=== PATIENT | male | born 1970 | race Caucasian/White ===

== ENCOUNTER → 2020-01-26 10:41 | Outpatient (BNVA) | payer SELFPAY | PROVIDERS: Visit Provider Physician Assistant Medical | DX: Z02.79 Encounter for issue of other medical certificate (principal) ==

== ENCOUNTER → 2021-02-22 13:45 | Outpatient (BNVA) | payer SELFPAY | PROVIDERS: Visit Provider Physician Assistant | DX: Z02.79 Encounter for issue of other medical certificate (principal) ==

== ENCOUNTER → 2023-03-27 08:10 | Outpatient (BNVA) | payer SELFPAY | PROVIDERS: Visit Provider Internal Medicine | DX: Z02.79 Encounter for issue of other medical certificate (principal) ==

== ENCOUNTER → 2024-03-21 15:16 | Outpatient (BNVA) | payer SELFPAY | PROVIDERS: Visit Provider Physician Assistant Medical | DX: Z02.79 Encounter for issue of other medical certificate (principal) ==

== ENCOUNTER 2024-07-14 10:41 | Emergency (ER) | payer OTHER, SELFPAY ==
--- NOTE | ~2024-07-14 | XR_ITS ---
EXAMINATION: XR LUMBOSACRAL SPINE CLINICAL INFORMATION: tenderness sp fall COMPARISON: None available. TECHNIQUE: Three views of the lumbosacral spine. FINDINGS: Syndesmophyte formation and marginal osteophyte formation L2-3 and L3-4. Endplate sclerosis and decreased intervertebral disc height at L4-5 and L5-S1 and to a lesser extent T12-L1. Mild S-shaped curvature which could be positional. No acute cortical disruption or gross malalignment. No lytic or blastic lesions. XR/XR lumbar spine 2-3V IMPRESSION: Spondylosis without acute fracture or trauma-related listhesis. Electronically signed by: Kevon Savage MD 07/14/2024 11:34 AM EDT
--- NOTE | ~2024-07-14 | XR_ITS ---
EXAMINATION: XR ELBOW, LEFT CLINICAL INFORMATION: medial tenderness s/p fall COMPARISON: None available. TECHNIQUE: AP, lateral, and oblique views of the left elbow. FINDINGS: No acute cortical disruption or malalignment. No gross joint effusion. No metallic or radiopaque foreign body. No lytic or blastic lesions. XR/XR elbow LT 2V IMPRESSION: No acute fracture or dislocation. Electronically signed by: Kevon Savage MD 07/14/2024 11:35 AM EDT
--- NOTE | ~2024-07-14 | XR_ITS ---
EXAMINATION: XR THORACIC SPINE CLINICAL INFORMATION: midline tenderness s/p fall COMPARISON: None available. TECHNIQUE: 3 views of the thoracic spine were obtained. FINDINGS: Multilevel marginal osteophyte formation and endplate sclerosis. No acute cortical disruption or malalignment. No gross volume loss of the vertebral bodies height. No lytic or blastic lesions. XR/XR thoracic spine 3V IMPRESSION: Multilevel spondylosis without acute fracture or trauma-related listhesis. Electronically signed by: Kevon Savage MD 07/14/2024 11:33 AM EDT
[2024-07-14 10:42] VITALS: BP 146/108; PULSE 77; RESP 20; TEMP 36.5; O2SAT 96; BMI 36.5
--- NOTE | 2024-07-14 10:49 | ED.FALL ---
HPI - Fall General Chief Complaint: Fall Stated Complaint: fell off ladder backwards at work Time Seen by Provider: 07/14/24 12:53 Source: patient, RN notes reviewed and old records reviewed Mode of arrival: wheelchair Limitations: no limitations History of Present Illness ED Provider: Daren [facility] Narrative: Patient is a 53-year-old male presenting to emergency department from [facility] after a fall at work prior to arrival. Patient states that his foot got caught on a wire, causing him to fall backwards approximately 3 feet and land on his back. Denies head strike or loss of consciousness, is not anticoagulated. Also complaining of left elbow pain. Denies headache, vision changes, neck pain. Denies nausea or vomiting. Denies hematuria. MD complaint: fall Onset (ago): hour(s) Fall from: standing and from height (distance) (3') Place fall occurred: work Loss of consciousness: none Prolonged down time: no Symptoms prior to fall: none Context: tripped/slipped Location of injury: back Related Data Previous Rx's ?Medication ?Instructions ?Recorded cyclobenzaprine 10 mg tablet 10 mg PO TID #14 tabs 07/14/24 lidocaine 5 % topical patch 1 patch topical DAILY #15 ea 07/14/24 naproxen 500 mg tablet 500 mg PO BID #14 tabs 07/14/24 Allergies Allergy/AdvReac Type Severity Reaction Status Date / Time Penicillins Allergy Unknown Verified 07/14/24 10:46 Review of Systems Review of Systems: As per HPI Yes all other systems are reviewed and are negative Constitutional: Constitutional: Reports as per HPI [facility] Social History Social History Do you have a plan to hurt others: No Plan Physical Exam Vital Signs: Vital Signs: Last Vital Signs Temp 97.7 F 07/14/24 10:42 Pulse 77 07/14/24 10:42 Resp 20 07/14/24 10:42 BP 146/108 H 07/14/24 10:42 Pulse Ox 96 07/14/24 10:42 O2 Del Method Room Air 07/14/24 10:42 BMI result Body Mass Index 36.5 Vital signs have been reviewed and appear to be correct. Blood pressure normal. Heart rate normal. Respiratory rate normal. Temperature normal. Oxygen saturation normal. Const: General: cooperative, healthy appearing and no acute distress Orientation/consciousness: oriented to person, oriented to place, oriented to time and patient oriented x3 Limitations: no limitations HEENT: Head: Yes normocephalic and Yes atraumatic Ears: external ears normal General nose exam: Normal external nose present Face and sinus: Yes face symmetric Mouth: oropharynx normal and moist mucous membranes Throat: Yes uvula midline Eyes: Pupils: Equal, round and reactive pupils present Neck: Neck: Yes normal visual inspection and Yes supple Resp: Effort & Inspection: normal respiratory effort and able to speak in complete sentences Auscultation: clear to auscultation bilaterally Cardio: Rate: regular rate Rhythm: regular rhythm Heart sounds: S1 normal heart sound present and S2 normal heart sound present GI: Palpation (GI): Soft to palpation and nontender Auscultation: normoactive bowel sounds : General: Yes no CVA tenderness Back/Spine/Pelvis: Back: no CVA tenderness Cervical Spine: normal cervical lordosis, cervical ROM normal, No cervical muscular tenderness, No pain with cervical ROM, No Cervical spine tenderness and No step off deformity Thoracic/Lumbar Spine: thoracic and lumbar spine normal to inspection, thoraco-lumbar ROM normal, straight leg raise negative bilaterally, pain with thoraco-lumbar ROM, paraspinal muscle tenderness bilaterally in the upper thoracic and in the mid thoracic, thoracic spinal tenderness at T2 and at T3 and No lumbar spinal tenderness Skin: General skin exam: elasticity normal and turgor normal Neuro: General: oriented to person, oriented to place, oriented to time, patient oriented x3, gait normal, tone normal, moves all extremities, Normal light touch and pain sensation, no focal motor deficits, CN's II-XI intact bilaterally and deep tendon reflexes 2+ bilaterally Cranial nerves: Yes Equal, round and reactive pupils present Cognition (Neuro): normal cognition Motor exam (neuro): 5/5 motor strength present throughout and Normal motor muscle tone present throughout Extrem: General: Yes full ROM, Yes no pedal edema and Yes no calf tenderness Left upper extremity: elbow/forearm Details: normal to inspection, tenderness Location: of the medial epicondyle, normal ROM and distal pulses intact; no ecchymosis Psych: Mental Status: mental status grossly normal Affect: normal affect Thought process: Normal thought process present Course Course Course Narrative: This is a rapid medical exam performed by Vasu Mercedes NP: Additional HPI, ROS, PE not included below will be deferred to primary provider. 07/14/24 10:50 Patient is a 53-year-old male presenting [facility] a fall at work prior to arrival. Patient states that his foot got caught on a wire, causing him to fall backwards and land on his back. Denies head strike or loss of consciousness, is not anticoagulated. Also complaining of left elbow pain. Plan: X-rays Medical Decision Making Medical Decision Making [facility] Narrative: Patient is a 53-year-old male presenting to emergency department from [facility] after a fall at work prior to arrival. On exam patient is awake, A+Ox3, VS WNL, afebrile, normal neurological exam without focal deficits, physical exam findings as above. Given reported symptoms and physical exam findings, initial differential includes but is not limited to contusion, vertebral fracture or subluxation, elbow contusion or fracture. X-ray left elbow notable for no acute fracture. X-rays of thoracic and lumbar spine without evidence of acute fracture or subluxation. My interpretation is in agreement with the radiologist's interpretation. Imaging of head and neck not indicated based on [place] [facility] rules. results discussed with patient and all questions answered. Advised patient he may be more sore for the next 1-2 days before slowly improving. Will send prescriptions for Flexeril, naproxen, lidocaine patches. Advised patient to follow up with PCP as well as [facility]. Return precautions discussed. Patient verbalized understanding of and agreement with plan. Differential Diagnosis Differential Diagnoses: The differential diagnosis associated with the presentation includes As per [facility] Admission/Observation Consideration of admission/observation: Escalation of care including admission/observation considered Patient would have been admitted to the hospital had their work up had any findings where hospital admission was appropriate and their clinical presentation warranted hospital admission. Independent Interpretation I performed an independent interpretation of an: Plain X-Ray Interpretation: X-ray left elbow notable for no acute fracture. X-rays of thoracic and lumbar spine without evidence of acute fracture or subluxation. Radiology Impression Discussion of test interpretation with radiology: I have reviewed the radiologist's reading. Radiologist Impression: XR/XR lumbar spine 2-3V IMPRESSION: Spondylosis without acute fracture or trauma-related listhesis. XR/XR thoracic spine 3V IMPRESSION: Multilevel spondylosis without acute fracture or trauma-related listhesis. XR/XR elbow LT 2V IMPRESSION: No acute fracture or dislocation. External Record Review External record reviewed: Inpatient record, Office record and Outpatient record Prescription Management I considered prescription management with: Pain Medication and Other Discharge Plan Discharge Clinical Impression: Back pain due to injury, Contusion of left elbow Patient Disposition: Home, Self-Care Instructions: Contusion in Adults (ED), Back Pain (ED), Warm Compress or Soak (ED) Additional Instructions: You were evaluated in the emergency department today for injuries related to a fall. Your imaging did not show evidence of conditions requiring emergent medical treatment at this time. You are being prescribed cyclobenzaprine which is a muscle relaxer. Do not operate heavy machinery or take alcohol while using this medication as it can cause excessive drowsiness. You are being prescribed naproxen to decrease inflammation. You are being prescribed topical lidocaine patches for pain which you can wear for up to 12 hours in a 24 hour period. Do not apply heat directly over the patches. We recommend that you follow-up with your primary care provider this week. Return to the emergency department if you develop new weakness, numbness, tingling to your arms or legs, tingling to your groin area, loss of control of your bowel or bladder, worsening pain, blood in your urine, or any other new or concerning symptoms. Follow-up with [facility] as well. [facility] [address] [place] [address] Prescriptions: New cyclobenzaprine 10 mg tablet 10 mg PO TID Qty: 14 0RF naproxen 500 mg tablet 500 mg PO BID Qty: 14 0RF lidocaine 5 % adhesive patch,medicated 1 patch topical DAILY Qty: 15 0RF Rx Instructions: leave on most painful area for up to 12 hrs Stand Alone Forms: Work/School Release Print Language: Korean
[2024-07-14 12:54] VITALS: BP 142/95; PULSE 62; RESP 20; TEMP 36.5; O2SAT 98
[2024-07-14 13:03] VITALS: BP 142/95; PULSE 62; RESP 20; TEMP 36.5; O2SAT 98
--- OUTSIDE RECORDS SUMMARY | 2024-07-14 14:36 | XMS_ITS | Data Portability ---
Author Organization [facility], , [facility] Address [address] [place] [address] Care Team Providers Care Devops Consultant Name Role Phone JOSE GONZALES Spa Director/Finance JAMIE TAPIA Urologist KADE SHEIKH Primary Care Provider JUAN BRAND Primary Care Provider Assessment Encounter Date Assessment Date Assessment LastModified by Organization Details LastModified Time 05/18/2020 05/18/2020 Patient agreed to this visit via a secure telehealth platform due to the COVID -19 pandemic. Patient understands this is a scheduled visit and the usual procedures with regard to billing and confidentialit y apply. Patient was notified that the provider location is home Patient location: home During the visit the patient? s medical history and medical record were reviewed. The patient was notified to call our office for worsening or urgent symptoms. Not available 05/18/2020 16:04:11 Plan of Treatment Reminders Order Date Submit Date Provider Last Modified By Organization Details Last Modified Time Details Appointments None recorded. 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 Surgeries None recorded. Imaging XR, chest - r/o PNA. ongoing cough and wheezing. 2023 024 [facility] (Im[facility]), [address], [place], [address], 4 10:44:07 Medication Orders albuterol sulfate HFA 90 mcg/actuat ion aerosol inhaler 2023 024 [facility]/Pharmacy #[id number], [address] [place], [address], 4 09:46:05 Symbicort 80 mcg-4.5 mcg/actuat ion HFA aerosol inhaler 2023 024 [facility]/Pharmacy #[id number], [address] [place], [address], 4 09:46:05 Patient TargetsNo targets recorded. Patient Instructions Encounter Date Encounter Id Patient Instructions Last Modified By Organization Details Last Modified Time 05/18/2020 [id number] After a discussi on of treatment and medication options, which included consideration of the best practices in medicine, a medical plan was provided. The patient's opinions and concerns were included in this treatment plan and goal. Things you can do to lower your risk of Covid 19 and help slow the spread of the virus -Get plenty of rest -Eat a healthy diet, with lots of fruits and vegetables -Get 7-8 hours of sleep per night -Make sure you are doing some type of exercise inside your house or outside (not in groups) -Maintain 6 feet distance from friends / family -Wash your hands frequently for 20 seconds and / or use Purell or other hand greige goods examiner -Do not touch your face, eyes, nose, mouth -Cover your mouth and nose with a tissue when sneezing and coughing or sneeze and cough into your sleeve. Throw the tissue in the trash. Wash your hands afterward. Never cough or sneeze into your hands. -Clean frequently used surfaces (such as doorknobs and counter tops) with a virus-killing disinfectant. -Call with any concerns. 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 3 Not Available [address], [address], 08/30/2021 12:47:30 08/30/19 22 08/30/2021 BASIC METAB OLIC PANEL B/C 16.4 ratio Not Available [address], [address], 08/30/2021 12:47:30 08/30/19 22 08/30/2021 BASIC METAB OLIC PANEL GFR >=60ML /MIN mL/mi n normal >=60m L/min - Janice l or midly reduc ed <60mL /min- Decre ased kidne y funct ion <15mL /min - Kidne y failu re [facility] calcu lates estim ated Glome rular Filtr ation Rate (eGFR ) using the Chron ic Kidne y Disea se Epide miolo gy Colla borat ion (CKD- EPI) Equat ion (Kirstie r et. al 2020) as recom khang d by the Natio nal Kidne y Found ation . eGFR is based on age, serum creat inine , and sex. CKD-E PI does not calcu late eGFR by race, does not apply to child sally (age <18 years ), and shoul d not be used in pregn rico. Not Available [address], [address], 08/30/2021 12:47:30 08/30/19 22 08/30/2021 BASIC METAB OLIC PANEL sodium 143 mmol/ L 136-14 5 Not Available [address], [address], 08/30/2021 12:47:30 08/30/19 22 08/30/2021 BASIC METAB OLIC PANEL potassium 4.4 mmol/ L 3.5-5. 1 Not Available [address], [address], 08/30/2021 12:47:30 08/30/19 22 08/30/2021 BASIC METAB OLIC PANEL chloride 106 mmol/ L 96-107 Not Available [address], [address], 08/30/2021 12:47:30 08/30/19 22 08/30/2021 BASIC METAB OLIC PANEL anion gap 8.3 5.0-15 .0 Not Available [address], [address], 08/30/2021 12:47:30 08/30/19 22 08/30/2021 BASIC METAB OLIC PANEL CO2 29 mmol/ L 21-32 Not Available [address], [address], 08/30/2021 12:47:30 08/30/19 22 08/30/2021 BASIC METAB OLIC PANEL calcium 9.2 mg/dL 8.5-10 .3 Not Available [address], [address], 08/30/2021 12:47:30 08/30/19 22 08/30/2021 LIPID PANEL cholesterol 219 mg/dL <200 mg/dl Arcelia able 200-2 39 mg/dl Borde rline High >240 mg/dl High Not Available [address], [address], 08/30/2021 12:47:31 08/30/19 22 08/30/2021 LIPID PANEL triglyceride s 130 mg/dL <150 mg/dL Janice l 150-1 99 mg/dL Borde rline High 200-4 99 mg/dL High >500 mg/dL Very High Not Available [address], [address], 08/30/2021 12:47:31 08/30/19 22 08/30/2021 LIPID PANEL direct HDL 49 mg/dL <40 mg/dl - Major Risk for CHD >60 mg/dl - Negat julio Risk for CHD Not Available [address], [address], 08/30/2021 12:47:31 08/30/19 22 08/30/2021 DIREC T LDL direct LDL 138 mg/dL RISK CATEG ORY LDL GOAL _ CHD or CHD Risk Equiv alent s <100 mg/dl (10-y ear risk >20%) 2+ Risk Facto rs <130 mg/dl (10-y ear risk <= 20%) 0-1 Risk Facto r? <160 mg/dl ? Almos t all peopl e with 0-1 risk facto r have a 10 year risk <10%, thus 10 year risk asses ment in peopl e with 0-1 risk facto r is not neces zacarias. Not Available [address], [address], 08/30/2021 12:47:32 07/04/1907/04/2022 LIPID PANEL cholesterol 225 mg/dL <200 mg/dl Arcelia able 200-2 39 mg/dl Borde rline High >240 mg/dl High Not Available [address], [address], 07/04/2022 11:23:02 07/04/1907/04/2022 LIPID PANEL triglyceride s 221 mg/dL <150 mg/dL Janice l 150-1 99 mg/dL Borde rline High 200-4 99 mg/dL High >500 mg/dL Very High Not Available [address], [address], 07/04/2022 11:23:02 07/04/1907/0407/04/2022 LIPID PANEL direct HDL 45 mg/dL <40 mg/dl - Major Risk for CHD >60 mg/dl - Negat julio Risk for CHD Not Available [address], [address], 07/04/2022 11:23:02 07/04/19 23 07/04/2022 DIREC T LDL direct LDL 144 mg/dL RISK CATEG ORY LDL GOAL _ CHD or CHD Risk Equiv alent s <100 mg/dl (10-y ear risk >20%) 2+ Risk Facto rs <130 mg/dl (10-y ear risk <= 20%) 0-1 Risk Facto r? <160 mg/dl ? Almos t all peopl e with 0-1 risk facto r have a 10 year risk <10%, thus 10 year risk asses ment in peopl e with 0-1 risk facto r is not neces zacarias. Not Available [address], [address], 07/04/2022 11:23:03 07/04/19 23 07/04/2022 HGB A1C hemoglobin A1C 5.7 % 4.8-6. 0 Goal: <7% in Patie nts with Diabe kristopher An A1c betwe en 5.7-6 .4% is ident ified as pre-d iabet es and sugge sts risk for progr essio n to diabe kristopher Two a1c value s of 6.5% or highe r is consi stent with a diagn osis of diabe kristopher but may need furth er confi rmati on Not Available [address], [address], 07/04/2022 11:27:20 07/04/19 23 07/04/2022 HGB A1C estimated average glucose 116.9 mg/dL Not Available [address], [address], 07/04/2022 11:27:20 07/04/1907/04/2022 TSH TSH 2.86 uIU/m L 0.50-6 .00 The Ameri can Colle ge of Endoc rinol ogy and Ameri can Thyro id Assoc iatio n recom mend goal TSH value s betwe en 0.4-4 .0 mIU/m L. Not Available [address], [address], 07/04/2022 12:25:48 07/04/1907/04/2022 BASIC METAB OLIC PANEL glucose 71 mg/dL 70-100 Not Available [address], [address], 07/04/2022 15:29:40 07/04/1907/04/2022 BASIC METAB OLIC PANEL BUN 15 mg/dL 7-18 Not Available [address], [address], 07/04/2022 15:29:40 07/04/1907/04/2022 BASIC METAB OLIC PANEL creatinine 1.2 mg/dL 0.8-1. 3 Not Available [address], [address], 07/04/2022 15:29:40 07/04/1907/04/2022 BASIC METAB OLIC PANEL B/C 12.5 ratio Not Available [address], [address], 07/04/2022 15:29:40 07/04/1907/04/2022 BASIC METAB OLIC PANEL GFR >=60ML /MIN mL/mi n normal >=60m L/min - Janice l or midly reduc ed <60mL /min- Decre ased kidne y funct ion <15mL /min - Kidne y failu re [facility] calcu lates estim ated Glome rular Filtr ation Rate (eGFR ) using the Chron ic Kidne y Disea se Epide miolo gy Colla borat ion (CKD- EPI) Equat ion (Kirstie r et. al 2020) as recom khang d by the Leanne banks . eGFR is based on age, serum creat inine , and sex. CKD-E PI does not calcu late eGFR by race, does not apply to child sally (age <18 years ), and shoul d not be used in pregn rico. Not Available [address], [address], 07/04/2022 15:29:40 07/04/1907/04/2022 BASIC METAB OLIC PANEL sodium 141 mmol/ L 136-14 5 Not Available [address], [address], 07/04/2022 15:29:40 07/04/1907/04/2022 BASIC METAB OLIC PANEL potassium 4.3 mmol/ L 3.5-5. 1 Not Available [address], [address], 07/04/2022 15:29:40 07/04/1907/04/2022 BASIC METAB OLIC PANEL chloride 105 mmol/ L 96-107 Not Available [address], [address], 07/04/2022 15:29:40 07/04/1907/04/2022 BASIC METAB OLIC PANEL anion gap 6.2 5.0-15 .0 Not Available [address], [address], 07/04/2022 15:29:40 07/04/1907/04/2022 BASIC METAB OLIC PANEL CO2 30 mmol/ L 21-32 Not Available [address], [address], 07/04/2022 15:29:40 07/04/1907/04/2022 BASIC METAB OLIC PANEL calcium 9.5 mg/dL 8.5-10 .3 MYRON=V erifi ed by Romina mills Not Available [facility] [address], [place], [address], 07/04/2022 15:29:40 09/04/19 22 09/03/2021 xr wrist 3 or more views (left ) XR FINGER 2 OR MORE VIEWS (LEFT) , XR WRIST (LEFT) COMPAR EMILY: None. IMPRES DAVID: Left thumb: No displa baljit fractu re or disloc ation. No signif icant soft tissue swelli ng. Left wrist: No displa baljit fractu re, disloc ation, or signif icant soft tissue swelli ng. ATTEST ATION: Twan Stout as teachi ng physic nan, have review ed the images for this case and if necess sachin edited the report origin yaa kang by Joaquin moran . Electr onical ly Signed by: Twan webster on 022 7:35 PM Interp reted by: Twan webster MD, PhD [facility] MD Joaquin Hammonds MD, MPH Signed by: Twan webster MD, PhD 2 Final result Pt fell onto left hand with baseba ll glove on. Pt states shooti ng pain from thumb up to elbow. Pt had a lot of pain during scapho id positi ons HARESH INE VAIBHAV DIN [email or web address] [facility] [address] [facility], [place], [address], 09/05/2021 19:15:51 09/04/19 22 09/03/2021 xr finge r 2 or more views (left ) XR FINGER 2 OR MORE VIEWS (LEFT) , XR WRIST (LEFT) COMPAR EMILY: None. IMPRES DAVID: Left thumb: No displa baljit fractu re or disloc ation. No signif icant soft tissue swelli ng. Left wrist: No displa baljit fractu re, disloc ation, or signif icant soft tissue swelli ng. ATTEST ATION: Twan Stout as teachi ng physic nan, have review ed the images for this case and if necess sachin edited the report origin yaa create d by Joaquin moran . Electr onical ly Signed by: Twan webster on 022 7:35 PM Interp reted by: Twan webster MD, PhD [facility] MD Joaquin Hammonds MD, MPH Signed by: Twan webster MD, PhD 2 Final result Pt fell onto left hand with baseba ll glove on. Pt states shooti ng pain from thumb up to elbow HARESH CARMINA ESPOSITO LEO [email or web address] [facility] [address] [place], [address], 09/04/2021 10:35:41 02/22/2002/21/2022 xr chest Pa and later al 2 views XR CHEST PA AND LATERA L 2 VIEWS COMPAR EMILY: XR CHEST PA AND LATERA L 2 VIEWS 2017- FINDIN GS: Device s/Tube s/Line s: None. Lungs: The lungs are clear. No focal consol idatio n or pulmon sachin edema. Pleura : No pleura l effusi on or pneumo thorax . Heart/ Medias tinum: The cardia c silhou ette is within normal limits . Bones/ Soft Tissue s: Mild degene rative change s of the thorac ic spine. IMPRES DAVID: No radiog raphic eviden ce of pneumo herb or pulmon sachin edema. ATTEST ATION: I, Dr. Dejan Dickens as teachi ng physic nan, have review ed the images for this case and if necess sachin edited the report origin yaa alba d by Kd Kingsley. Electr onical ly Signed by: Dr. Dejan Dickens on 2021 3:59 PM Interp reted by: MD Kd Enamorado MD Signed by: Dejan Dickens MD Final result Cough- Conges tion for a week. Covid this past Jan HARESH GREWAL VAIBHAV BAILEY [email or web address] [facility] [address] [place], [address], 02/21/2022 16:22:49 06/16/19 24 06/16/2023 XR, chest CLINIC AL HISTOR Y: Cough. TECHNI QUE: Fronta l view and latera l view of the chest obtain ed. COMPAR EMILY: None. FINDIN GS: The heart is normal in size and config uratio n.Ther e is no hilar or medias tinal enlarg ement. There is no focal lung consol idatio n or infilt rate. The bony thorax is intact . IMPRES DAVID: No acute diseas e. Readin g Physic nan: Rudy tejeda Cross [email or web address] [facility] ([facility]) [address] , [place], [address], 06/16/2023 12:38:48 Result Notes None recorded. Problems Name Problem SNOMED Code Status Onset Date Resolution Date Notes Provider Name and Address Organization Details Recorded Time Gastroes ophageal reflux disease 787750171 Active 2016 Mary Khan, [facility]-[address], [address] , [facility] 7 11:48:02 [facility] hyperten david 38425838 Active 2019 Tangela Rizvi MA null, [facility] 0 08:49:01 Morbid obesity 117359620 Active 2021 BMI > or = 35 with diagnosi s of hyperlip idemia and hyperten david Lorena Pedersen LPN [facility], [facility] 2 09:26:39 Mixed hyperlip idemia 369143995 Active 2008 Yazmin Leblanc null, [facility] 5 13:42:49 Pain in throat 996903188 Completed 200603/02/2013 Not Available [facility] 3 02:03:09 Neoplasm of uncertai n behavior of skin 85891140 Completed 200603/02/2013 Not Available [facility] 3 02:01:51 Carpal tunnel syndrome 95328192 Completed 09/10/2012 Not Available [facility] 3 03:11:58 Purulent otitis media 98009726 Completed 03/02/2013 Not Available [facility] 3 02:04:25 On examinat ion - a rash Completed 03/02/2013 Not Available [facility] 3 02:00:48 Influenz a with respirat ory manifest ation other than pneumoni a Completed 200703/02/2013 Not Available [facility] 3 02:03:48 Right upper quadrant pain 705055301 Completed 200203/02/2013 Not Available [facility] 3 02:03:18 Divertic ulitis of colon 888088198 Active 2003 Not Available [facility] 3 03:11:59 Low back pain 047695718 Active 2005 Not Available [facility] 3 03:11:59 Acute pharyngi tis 793231050 Completed 03/02/2013 Not Available [facility] 3 02:01:16 Malaise and fatigue 305687886 Completed 03/02/2013 Not Available [facility] 3 02:00:18 Indigest ion 340064316 Completed 200203/02/2013 Not Available [facility] 3 02:03:52 Problem Notes None recorded. Procedures Surgical History Date Name Laterality Status Provider Name and Address Organization Details Recorded Time 1 Video Visit completed Radha Cox MA [facility] 05/18/2020 16:04:03 7 Wound Care completed Radha Singer MD [address] [place] [address], [phone], [facility] [place]/09/2017 14:09:09 7 Incise and Drain with packing completed NANCY Rizo [address] [place] [address], [phone], [facility] [place]/10/2017 15:02:23 Carpal Tunnel Surgery completed Gloria Schmidt [facility] 11/18/2016 12:15:59 Imaging Results Imaging Date Name Status LastModified by Organiz ation Details LastModified Time 09/03/2021 xr wrist 3 or more views (left) completed [email or web address] [facility] [address] [place], [address], 09/05/2021 19:15:51 09/03/2021 xr finger 2 or more views (left) completed [address] [facility] [address] [place], [address], 09/04/2021 10:35:41 02/21/2022 xr chest Pa and lateral 2 views completed [address] [facility] [address] [place], [address], 02/21/2022 16:22:49 06/16/2023 XR, chest completed [address] (Imaging) [address], [place], [address], 06/16/2023 12:38:48 Procedure Notes None recorded. Medical Equipment None Reported. Allergies No known drug allergies Medications Name Sig Start Date Stop Date Status Note LastModified by Organization Details LastModified Time prednisone 10 mg tablet TAKE 4 TABLETS BY MOUTH DAILY FOR 5 DAYS. 03/20 completed 03/20/20 not taking ljp Not Available Not Available Not Available azithromyc in 250 mg tablet Take 2 tablets (500 mg) by oral route once daily for 1 day then 1 tablet (250 mg) by oral route once daily for 4 days 2010 active Not Available Not Available Not Avai lable ondansetro n HCl 4 mg tablet TAKE 1 TABLET BY MOUTH EVERY 8 HOURS NEEDED FOR NAUSEA 07/10 completed not taking 07/09/22 mk Not Available Not Available Not Available promethazi ne 6.25 mg-codeine 10 mg/5 mL syrup 04/22 completed Not Available Not Available Not Available amoxicilli n 500 mg tablet Take 1 tablet 3 times a day by oral route for 10 days. 06/19 completed Not Available Not Available Not Available oxycodone- acetaminop hen 5 mg-325 mg tablet active Not Available Not Available Not Available meclizine 25 mg tablet TAKE 1 TABLET BY MOUTH THREE TIMES A DAY NEEDED 07/10 completed not taking 07/09/22 mk Not Available Not Available Not Available benzonatat e 100 mg capsule TAKE 1 CAPSULE BY MOUTH THREE TIMES A DAY NEEDED FOR COUGH 03/20 completed 03/20/22 no longer using ljp Not Available Not Available Not Available cephalexin 500 mg capsule Take 1 capsule 3 times a day by oral route for 5 days. 03/22 completed Not Available Not Available Not Available erythromyc in 5 mg/gram (0.5 %) eye ointment APPLY A 0.5 INCH RIBBON INTO EACH EYE NIGHTLY. 04/22 completed Not Available Not Available Not Available oseltamivi r 75 mg capsule 04/22 completed Not Available Not Available Not Available clotrimazo le-betamet hasone 1 %-0.05 % topical cream Apply to the affected and surround ing areas of skin by topical route 2 times per day morning and evening for 2 weeks active Not Available Not Available No t Available lisinopril 10 mg tablet TAKE 1 TABLET BY MOUTH EVERY DAY 2023 active Not Available Not Available Not Avai lable omeprazole 20 mg capsule,de layed release TAKE 1 CAPSULE BY MOUTH DAILY 01/07 completed Not Available Not Available Not Available diclofenac sodium 75 mg tablet,del ayed release Take 1 tablet twice a day by oral route with meals for 14 days. 09/11 completed Not Available Not Available Not Available lisinopril 5 mg tablet TAKE 1 TABLET BY MOUTH EVERY DAY 10/20 completed Not Available Not Available Not Available mupirocin 2 % topical ointment APPLY A SMALL AMOUNT TO THE AFFECTED AREA BY TOPICAL ROUTE 3 TIMES PER DAY 03/22 completed Not Available Not Available Not Available albuterol sulfate HFA 90 mcg/actuat ion aerosol inhaler INHALE 2 PUFFS EVERY 4 HOURS BY INHALATI ON ROUTE NEEDED FOR 28 DAYS. active Not Available Not Available No t Available fluticason e propionate 50 mcg/actuat ion nasal spray,susp ension TAKE 1 SPRAY BY NASAL ROUTE 2 TIEMS A DAY FOR 14 DAYS active PRN Not Available Not Available No t Available amoxicilli n 875 mg-potassi um clavulanat e 125 mg tablet 12/05 completed Not Available Not Available Not Available Bactrim DS 800 mg-160 mg tablet Take 1 tablet every 12 hours by oral route for 7 days. 04/22 completed Not Available Not Available Not Available budesonide -formotero l HFA 80 mcg-4.5 mcg/actuat ion aerosol inhaler INHALE 2 PUFFS TWICE A DAY BY INHALATI ON ROUTE NEEDED FOR 14 DAYS. active Not Available Not Available No t Available Celia De La Paz [facility] spacer USE DIRECTED 10/20 completed Not Available Not Available Not Available Vitals Date Recorded Body height Body mass index (BMI) Body weight Provider Name and Address Organization Details Last Updated DateTime 05/18/2020 172.72 cm 35.4 kg/m2 531228.02 g Radha Cox [facility] 05/18/2020 16:00:06 Date Recorded Body height Heart rate Oxygen saturation Oxygen saturation in Arterial blood by Pulse oximetry Body mass index (BMI) Body weight Systolic blood pressure Diastolic blood pressure Provider Name and Address Organization Details Last Updated DateTime 2 172.72 cm 82 /min 98 % 98 % 37.3 kg/m2 999764. 13 g 122 mm[Hg] 84 mm[Hg] Tangela King Ava [facility] 2 16:05:53 Date Recorded Body height Provider Name an d Address Organization Details Last Updated DateTime 07/10/2022 172.72 cm Emani Sun [facility] 07/10/2022 08:50:14 Date Recorded Body height Body mass index (BMI) Body weight Heart rate Systolic blood pressure Diastolic blood pressure Provider Name and Address Organization Details Last Updated DateTime 3 172.72 cm 37.6 kg/m2 055665. 12 g 80 /min 120 mm[Hg] 84 mm[Hg] Jaymie webb [facility] 3 16:20:04 Date Recorded Body height Oxygen saturation Oxygen saturation in Arterial blood by Pulse oximetry Heart rate Systolic blood pressure Diastolic blood pressure Provider Name and Address Organization Details Last Updated DateTime 4 172.72 cm 98 % 98 % 88 /min 138 mm[Hg] 82 mm[Hg] Keri Shea [facility] 4 09:33:18 Social History Question Answer Notes LastModified by Organizat ion Details LastModified Time Tobacco Smoking Status Never Smoker Not Available [facility] 02/27/2011 04:53:49 What Is Your Level Of Alcohol Consumption? Occasional Rarely, Holidays Information not available 04/22/2018 Do You Wear A Helmet When Biking? Yes Information not available 03/20/2022 Are You Blind Or Do You Have Difficulty Seeing? No Information not available 03/18/2013 What Is Your Level Of Caffeine Consumption? Heavy Coffee And Ice Tea 3-4 30oz Information not available 03/20/2022 Are You Deaf Or Do You Have Serious Difficulty Hearing? No Information not available 03/20/2022 What Type Of Diet Are You Following? REGULAR Information not available 03/20/2022 Do You Or Have You Ever Used E-cigarettes Or Vape? Never Used Electronic Cigarettes Information not available 03/20/2022 What Is Your Occupation? [employer]_ [id number] Information not available 02/27/2011 How Many Days In The Past Year Have You Had A Heavy Drinking Consumption (4+ Female, 5+ Male)? 0 Information not available 04/22/2018 Are There Any Guns Present In Your Home? No Information not available 03/18/2013 Marital Status Informatio n not available 03/20/2022 Mosquito Repellent Used Routinely Yes Information not available 03/20/2022 What Was The Date Of Your Most Recent Tobacco Screening? 06/16/2023 [email or web address] Information not available 06/16/2023 How Many Children Do You Have? 2 [email or web address] Information not available 11/18/2016 Seat Belts Used Routinely Yes Information not available 03/20/2022 Smoke Alarm In Home Yes Information not available 03/20/2022 What Types Of Sporting Activities Do You Participate In? Soccer Information not available 04/22/2018 General Stress Level High Information not available 03/20/2022 Do You Use Sunscreen Routinely? No Information not available 03/20/2022 Do You Or Have You Ever Used Any Other Forms Of Tobacco Or Nicotine? No aforesteire Information not available 10/20/2022 Sex: Unknown Functional Status Question Answer Note LastModified by Organization D etails LastModified Time Do you have difficulty walking or climbing stairs? No Information not available 03/20/2022 Do you have difficulty doing errands alone? No Information not available 03/20/2022 Do you have difficulty dressing or bathing? No Information not available 03/20/2022 Mental Status Question Answer Note LastModified by Organization D etails LastModified Time Do you have difficulty concentrating, remembering or making decisions? No Information no t available 03/20/2022 Family History Relationship Description Onset Age of this Age Resolved Age Notes LastModified by Organization Details LastModified Time Father Coronary arterioscler osis hwickline Not available 2021 15:38:03 Father Myocardial infarction 52 [email or web address] Not available 11/18 12:10:30 Mother Multiple sclerosis hwickline Not available 2021 15:38:03 Mother Multiple sclerosis diagno sed 2016 [email or web address] Not available 03/20/2022 15:38:03 Maternal Uncle Malignant tumor of colon Prosta te and colon cancer rweitz Not available 11/18/2016 12:12:47 Medical History Condition Response MUSCULOSKELETAL GERD Y Immunizations Vaccine Type Date Status Note Provider Nam e and Address Organization Details Recorded Time Tdap 7 completed Not Available [facility] 02/26/2011 05:21:55 Td (adult), 2 Lf tetanus toxoid, preservative free, adsorbed 9 completed Not Available [facility] 04/30/2019 02:36:31 COVID-19, mRNA, LNP-S, PF, 30 mcg/0.3 mL dose 1 completed Tangela King RMAva mosley, [facility] 03/21/2022 09:17:44 COVID-19, mRNA, LNP-S, PF, 30 mcg/0.3 mL dose 1 completed Tangela King RMAva mosley [facility] 03/21/2022 09:17:59 COVID-19, mRNA, LNP-S, PF, 30 mcg/0.3 mL dose 1 completed Tangela King RMA melany [facility] 03/21/2022 09:18:17 Past Encounters Encounter ID Performer Location Encounter Start Date Encounter Closed Date Diagnosis/Indication Diagnosis SNOMED-CT Code Diagnosis ICD10 Code Diagnosis Note [id number] [facility], OFFICE [address] [facility] [place] [address] 08/16/2002 10:56:53 05/03/2008 02:02:29 [id number] [facility], OFFICE [address] [facility] [place] [address] 08/30/2002 15:42:50 05/03/2008 02:02:29 [id number] [facility] - [facility] [address] [facility] [place] [address] 08/30/2002 16:13:56 05/03/2008 02:02:29 [id number] [facility], OFFICE [address] [facility] [place] [address] 11/08/2002 09:43:29 05/03/2008 02:02:29 [id number] LAB - [facility] 70 [place] [address] 11/08/2002 10:07:27 05/03/2008 02:02:29 [id number] [facility], OFFICE [address] [facility] [place] [address] 11/27/2003 15:05:20 11/27/2003 17:16:41 [id number] [facility], OFFICE [address] [facility] [place] [address] 05/28/2005 16:02:48 05/30/2005 08:55:53 [id number] [facility], OFFICE [address] [facility] [place] [address] 05/11/2006 15:07:50 05/11/2006 16:51:06 [id number] [facility], OFFICE [address] [facility] [place] [address] 01/18/2007 16:40:42 05/03/2008 02:02:29 [id number] [facility], OFFICE [address] [facility] [place] [address] 01/19/2007 11:46:06 05/03/2008 02:02:29 [id number] [facility], OFFICE [address] [facility] [place] [address] 06/09/2007 15:06:48 05/03/2008 02:02:29 [id number] [facility], [address] [place] [address] 05/10/2008 09:15:54 05/11/2008 15:00:48 [id number] [facility], OFFICE [address] [place] [address] 06/09/2008 15:42:05 07/03/2008 11:49:19 [id number] [facility] [address] [place] [address] 05/10/2008 10:41:18 05/10/2008 10:41:24 [id number] [facility], OFFICE [address] [place] [address] 05/10/2008 00:00:00 02/08/2009 02:00:52 [id number] [facility], OFFICE [address] [place] [address] 04/03/2009 16:52:27 04/04/2009 09:48:26 [id number] [facility], OFFICE [address] [facility] [place] [address] 07/22/2010 15:33:44 07/26/2010 12:08:46 [id number] [facility], OFFICE [address] [facility] [place] [address] 08/29/2011 13:52:15 08/29/2011 15:26:24 [id number] [facility], [address] [place] [address] 11/27/2011 11:41:33 11/27/2011 12:18:48 [id number] Samuel Frederick MD [facility], [address]ICE [address] [place] [address] 07/22/2012 13:44:26 07/22/2012 14:33:21 [id number] CEM Mcneill [facility], [address]ICE [address] [place] [address] 09/10/2012 10:16:29 09/10/2012 15:35:05 [id number] Babita Witt NP [facility], [address] [place] [address] 12/01/2012 09:28:00 12/01/2012 09:48:16 Streptococcal sore throat [id number] Improving. Continue abx as directed, enc plenty of water, naveen on hot days. OK to return to work. RTC prn [id number] Anita HERNANDEZ, [facility], [address] [place] [address] 03/18/2013 08:20:10 03/18/2013 16:17:40 Blood in urine 49693071 trace hematuria found on routine PDOT. asymptomat ic. will send to lab for ua. if positive repeat in 2 weeks and if persistent ly positive pursue work up. Adult heal th examination [id number] pt presents for PDOT physical. did not address general risk assessment . though pt would like to schedule routine physical in the next few months. no htn. no dm. no drug or etoh abuse. 2 year certificat e for PDOT completed. [id number] Bryon HERNANDEZ, [facility], [address] [place] [address] 06/22/2015 13:22:28 06/26/2015 07:44:34 Rib pain [id number] R07.81 heat, ALeve check xray and will call pt with results. [id number] CEM Mcneill, [facility], [address] [place] [address] 11/18/2016 11:03:43 11/18/2016 12:14:59 Chest pain 34808079 R07.1 despite today's symptoms being reassuring , pt does endorse historical exertional chest pain and t wave inversion noted on EKG (may be lead placement) referral for outpatient stress test with ER indication s reviewed extensivel y. Gastroesop hageal reflux disease [id number] K21.9 suspect current symptoms are GERD, as they are constant and not exacerbate d by activity [id number] CEM Mcneill, [facility], [address] [place] [address] 12/05/2016 11:32:15 12/08/2016 07:52:10 Gastroesophageal reflux disease 109434439 K21.9 asymptomat ic since omeprazole and caffeine reduction, d/c omeprazole at end of this month,repo rt if symptoms return. [id number] NANCY Rioz, [facility], [address] [place] [address] 01/07/2017 15:41:59 01/07/2017 16:48:27 Abscess 163814630 L02.91 R axilla, I & D done by MANOHAR w/bloody return, packed w/packing strip to f/u w/MANOHAR on Thursday. Bactrim ordered as written below. [id number] Radha Singer MD FP, [facility], [address] [place] [address] 01/09/2017 13:38:07 01/12/2017 09:05:37 Abscess of axilla 85194059 L02.419 the area is without any purulent drainagehe did not start abxno systemic sxadvised given repeat in same area and deep induration to take abx coursehe will get todayno repeat packing, guaze and bacitracin applied, keep covered until healed [id number] CHANG Bryson, [facility], [address] [place] [address] 04/22/2018 08:08:19 04/22/2018 09:14:11 Adult health examination 043662479 Z00.00 see Risk Assessment and Lifestyle Change Counseling section above Counseling [id number] Z71 .9 Depression screening 171 101553 Z13.89 depression screening tool administer ed, entered into emr, scored and discussed, time greater than 7.5 minutes Obesity 111452894 E66.9 discussed current plan to eliminate junk food from diet, working with on this, increase activity. Pain in right knee 46570 38909 34915 M25.561 stretches, heat, topical antiinflam matories. COnsider xray, PT. Active or passive immunization 214237101 Z23 [id number] CHANG Bryson, [facility], [address] [place] [address] 07/09/2018 15:55:30 07/09/2018 16:51:35 Lesion of nose 576700149 J34.89 meds as directed = close f/u -call with persistent or increased sx -advised re urgent care. Knee pain 26799163 M25.5 69 will obtain xray, consider pt/sports med referral Obesity 183051895 E66.9 discussed current plan to eliminate junk food from diet, working with on this, increase activity. Will help with knee pain, overall health [id number] Babita Witt NP FP, [facility], [address] [place] [address] 03/22/2019 15:49:33 03/23/2019 10:38:20 Benign essential hypertension 8406290 I10 BP clinic in 2wk - use portal to send questions or home BP readings. If BP still high at BP clinic would go to 10mg lisinopril Obesity 332911913 E66.9 discussed current plan to eliminate junk food from diet, working with on this, increase activity. Will help with BP, overall health [id number] Emilia Guajardo DO FP, [facility], [address] [place] [address] 05/18/2020 15:57:09 05/21/2020 12:45:32 Hernia of anterior abdominal wall 444378377 K43.9 Discussed warning signs including inability to reduce hernia which is a surgical emergency situation. Will refer to Dr. Mack per pt request for eval of possible surgical interventi on. [id number] CHANG Bryson, [facility], [address] [place] [address] 03/20/2022 15:34:12 03/20/2022 17:51:38 Essential hypertension 41250701 I10 at goal Mixed hyperlipidemia 267 939902 E78.2 Cholestero l is at goal Continue to work on diet and exercise as discussed Vertigo 449307306 R42 seems to be BPPV - however father with Meniere's Body mass index 30+ - obesity 108949266 Z68.37 [id number] CHANG Bryson, [facility], [address] [place] [address] 07/10/2022 08:47:52 07/10/2022 12:21:36 Essential hypertension 53968374 I10 not at goal - portal in readings x 3d - if >130/80 will increase to 10mg lisinopril Mixed hyperlipidemia 267 934717 E78.2 Cholestero l is not at goalContin ue to work on diet and exercise as discussed - Screening for malignant neoplasm of colon 572857049 Z12.11 Morbid obesity 346555303 E66.01 advised daily exercise, reducing ice cream and hot dogs to start.cons ider nutrition consult.ne xt visit in person - 1month [id number] Tonya Gupta PA-C , [facility], [address] [place] [address] 10/20/2022 16:01:28 10/20/2022 16:33:14 Snoring 85547204 R06.83 Patient with htn, obesity presents to discuss seeing sleep medicine. Had a DOT physical who recommends patient being tested for sleep apnea due to neck being over 18 & snoring.Re ferral placed to sleep medicine for home sleep study. Obesity 792642854 E66.9 [id number] JUAN BRAND DO , [facility], [address] [place] [address] 06/16/2023 09:23:53 06/16/2023 09:44:45 Cough 83681470 R05.9 Patient presents with cough.Like ly secondary to:Intermi ttent asthma.Dis cussed supportive measures.F ollow up if not improving or with worsening symptoms. Mild inter mittent asthma 653193672 J45.20 After a discussion of treatment and medication options, which included considerat ryan of the best practices in medicine, a medical plan was provided. The patient's opinions and concerns were included in this treatment plan and goal. -Start prednisone taper; always take it with food. The most common side effects include, but are not limited to: irritation of stomach, increase in appetite, increased blood sugars in patients with diabetes or prediabete s, and temporary difficulty sleeping. -Continue with inhalers as instructed . -Call if worsening wheezing, fever, or shortness of breath. -Schedule follow-up for asthma management with your primary care practition er in [facility] one month. -[facility] . Health Concerns Section Related Observation LastModified by Organization Detai ls LastModified Time None Recorded Concern Status LastModified by Organization Details LastModified Time None Recorded Advance Directives Directive None Recorded Payers Encounter Date Sequence Insurance Name Policy Number Policy Watkins Covered Member ID Watkins Member ID Guarantor Name 05/18/[address] [facility] Sandip Murphy [id number] Sandip Murphy Jr 03/20/[address] [facility] Sandip Murphy [id number] Sandip Murphy Jr 07/10/[address] [facility] Sandip Murphy [id number] Sandip Murphy Jr 10/20/[address] [facility] Sandip Murphy [id number] Sandip Murphy Jr 06/16/[address] [facility] Sandip Murphy [id number] Sandip Murphy Jr Notes Date Note Type Note Provider Name and Address Organization Details Recorded Time 05/18/2020 text/html Pt states he fee ls like he has a Seperation in abdomen, visible/ palpable seperation, he states he noticed it awhile ago and it has been bothering him more and more, he can't do sit ups. he says when he stands from a sitting position he can feel the seperation. he states pain when ties shoes or to touch. Time for intake: {{1 2 3 4 5* 6 7 8 9 10 11 12 13 14 15 16 17 18 19 20 21 22 23 24 25}} minutes. VV: video Pt states that he has a seperation in my abdomen . he states that there is a lump when he goes to sit up and he can move it around. He does get pain with bending over and sitting up. He noticed this in the past 3 months. Denies abdominal surgeries. Emilia Guajardo, [address] [place], [address] [facility] [place]/18/[place] 16:27:09 03/20/2022 text/html 03/20/22 hosp f/u visitvertigo for 2-3wk - hard to stand, would vomittreated with flonase and meclizine -much bettercheck MIIS for Covidlabs for diabetes -worried about FMH, weight Previous Visit:Had DOT PHA 01/20/19 and blood pressure was high. Doesn't smoke. Was drinking 8 coffee's per day, has since cut to 32 oz. Having decaf in the afternoon. 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 Less stress, likes his job, happy home life. Has put on weight 15-20# past year. Occas feels out of breath. No chest pain but more eaasily winded. Plays indoor soccer - able to do all the running but winded. No asthma hx Babita Witt, CHANG [address] [place], [address], [facility] [place]/20[place]22 19:41:59 07/10/2022 text/html Visit is via secure telephone -Reports home BPs have been pretty good - 140-150/80-90s - advised goal was <130/80Has not checked past week = has home axanuccS4V normal = 5.7BMP normalLipids = LDL 144/ HDL 45Due for CRC screening - prefers to postpone colonoscopy - no FMHDoes have H prostate cancer Babita Witt NP [address] [place], [address] [facility] [place]/10/[place]22 11:27:42 10/20/2022 text/html Patient with htn presents to discuss seeing sleep medicine. Had a DOT physical who recommends patient being tested for sleep apnea due to neck being over 18 & snoring.Pt reports sleeps well, but has daytime sleepiness. Tonya Gupta PA-C [address] [place], [address], [facility] [place]/20/[place]22 16:46:08 06/16/2023 text/html Cough epReported bypatient.Symptoms Patient presents with cough for 5 days; No GERD; no fever; no chills;cough;sore throat; no sick contacts; no tobacco use Pleasant 52-year-old male presenting with ongoing cough for the last 5 days.Patient denies wheezing or shortness of breath. He has been trying DayQuil, NyQuil, Delsym for alleviation of symptoms with mild relief. 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 No reported chills or sweats. JUAN BRAND DO [address] [place], [address], [facility] [place] 06/19/2023 08:43:34
== END 2024-07-14 13:29 | disposition home or self-care (01) ==
LOC: HO.ED 13:22
PROVIDERS: Emergency Provider Emergency Medicine
DX: M54.9 Dorsalgia, unspecified (principal); S50.02XA Contusion of left elbow, initial encounter; W11.XXXA Fall on and from ladder, initial encounter; M25.522 Pain in left elbow; Y93.9 Activity, unspecified; Y92.9 Unspecified place or not applicable; Y99.0 Civilian activity done for income or pay
CPT/HCPCS: 72072; 72100; 73070; 99282; 99283

== ENCOUNTER → 2024-07-14 10:49 | Outpatient (BNV) | payer SELFPAY | PROVIDERS: Visit Provider Radiology Diagnostic Radiology | DX: M47.816 Spondylosis without myelopathy or radiculopathy, lumbar region (principal); M47.814 Spondylosis without myelopathy or radiculopathy, thoracic region; M25.522 Pain in left elbow | CPT/HCPCS: 72072; 72100; 73070 ==

== ENCOUNTER → 2025-03-24 15:10 | Outpatient (BNVA) | payer SELFPAY | PROVIDERS: Visit Provider Emergency Medicine | DX: Z02.79 Encounter for issue of other medical certificate (principal) ==